=== PATIENT | male | born 1995 | race Caucasian/White ===

== ENCOUNTER 2017-10-13 14:20 | Emergency (ER) | payer OTHER, SELFPAY ==
[2017-10-13] MEDS ORDERED: Morphine 10 MG/ML VIAL ONE (14:35)
--- NOTE | 2017-10-13 15:26 | RAD ---
SACRUM AND COCCYX RADIOGRAPH: History: Trauma. Comparison: None. FINDINGS: SI joints are unremarkable. Pubic symphysis are unremarkable. No displaced fracture of the sacrum. IMPRESSION: No displaced fracture. POS: OFF
== END 2017-10-13 15:31 | disposition home or self-care (01) ==
LOC: ERS 14:20
DX: S30.0XXA Contusion of lower back and pelvis, initial encounter (principal); V80.010A Animal-rider injured by fall from or being thrown from horse in noncollision accident, initial encounter
CPT/HCPCS: 72220; 96372; J2270